=== PATIENT | female | born 1970 | race Caucasian/White ===

== ENCOUNTER → 2017-12-05 07:13 | Outpatient (CLI) | payer BC | END | disposition home or self-care (01) | LOC: D.MRI 12-03 07:00 | DX: M54.5 Low back pain (principal) ==

== ENCOUNTER → 2017-12-26 21:12 | Outpatient (CLI) | payer BC | END | disposition home or self-care (01) | LOC: D.MAMMO 14:30 | DX: Z12.31 Encounter for screening mammogram for malignant neoplasm of breast (principal) ==

== ENCOUNTER → 2018-01-09 08:23 | Outpatient (CLI) | payer BC ==
--- NOTE | ~2018-01-09 | ST ---
PATIENT:SHEREE MITCHELL MEDICAL RECORD: [id number] SEX: F LOCATION:[facility] ORDER #: ADMISSION DATE: 01/09/18 AGE OF PATIENT: 47 REFERRING PHYSICIAN: INTERPRETING PHYSICIAN: DANNIE DE LA CRUZ MD DATE OF SERVICE: 01/09/2018 PROCEDURE: Nuclear stress test. INDICATION: Angina, hypertension, diabetes, and hyperlipidemia. DESCRIPTION: The patient was exercised on standard Lexiscan protocol with 33 mCi of sestamibi injected at peak stress. Rest images were done previously with 11 mCi. FINDINGS: Gated SPECT reveals a preserved ejection fraction at 73% with good wall motioning and thickening and brightening throughout all segments. SPECT imaging: Cardiolite was used as myocardial perfusion agent. There is homogeneous uptake throughout all segments at rest and stress with no evidence of inducible ischemia or previous infarction. OVERALL IMPRESSION: 1. This is a normal nuclear stress test with no evidence of inducible ischemia or previous infarction. 2. Gated SPECT reveals preserved ejection fraction at 73%. In this patient with ongoing symptomatology, the current scan does not suggest the presence of hemodynamically significant coronary artery disease. Evaluate noncardiac etiology of chest pain. TRANSINT:[id number] Voice Confirmation ID: [id number] DOCUMENT ID: [id number] DANNIE DE LA CRUZ MD at 1718 CC: [id number] DICTATION DATE: 01/09/18 1618 DERRICK HELPER: 01/10/18 0845 [facility] CLI 01/09/18 [facility] [address] [place] [address]
== END | disposition home or self-care (01) ==
LOC: D.HCCARDIO 08:23
DX: I20.9 Angina pectoris, unspecified (principal)

== ENCOUNTER → 2018-07-18 15:32 | Outpatient (CLI) | payer BC | END | disposition home or self-care (01) | LOC: D.MRI 15:32 | PROVIDERS: ATTEND Family Medicine | DX: M54.12 Radiculopathy, cervical region (principal); M25.512 Pain in left shoulder ==

== ENCOUNTER 2019-07-18 05:15 | Day surgery (SDC) | payer BC ==
[2019-07-16 10:24] LABS: HEMATOCRIT 44.5 % (36.0-48.0); HEMOGLOBIN 14.5 g/dL (12-16); MCHC 32.6 g/dL (31.0-37.0); MEAN PLATELET VOLUME 9.8 fL (7.4-10.4); RDW 13.2 % (11.5-14.5); WBC 7.8 10x3/uL (4.8-10.8)
[2019-07-16 10:25] LABS: CALC OSMOLALITY 280 mosm/kg (275-300); CALCIUM 9.4 mg/dL (8.5-10.1); CARBON DIOXIDE 28.1 mmol/L (21.0-32.0); CHLORIDE - SERUM 101 mmol/L (98-107); CREATININE - SERUM 0.7 mg/dL (0.6-1.3); GLUCOSE 200 mg/dL (74-106); POTASSIUM - SERUM 4.3 mmol/L (3.5-5.1); SODIUM 137 mmol/L (136-145); UREA NITROGEN 15 mg/dL (7-18); eGFR NON AFRICAN AMERICAN > 90 mL/min (90-120)
[~2019-07-18] VITALS: Ht 165.1 cm; Wt 97.5 kg
[~2019-07-18 05:15] MED LIST: ALTACE1.25 MG PO; CRESTOR40 MG PO; FARXIGA10 MG PO; GLUCOPHAGE1000 MG PO; GLUCOTROL 5 MG T5 MG PO; JARDIANCE10 MG PO; SYNTHROID112 MCG PO; VYVANSE70 MG PO; ZOLOFT100 MG PO; [UNRECOGNIZED DRUG - OTHER] INJ
[2019-07-18 06:06] VITALS: BP 117/71; Ht 165.1 cm; Wt 97.5 kg
--- NOTE | 2019-07-19 09:30 | OP ---
PATIENT NAME: SHEREE ELLIS MEDICAL RECORD: [id number] :68 LOCATION:[facility] ADMISSION DATE: SURGEON: AJIT JAVIER DO DATE OF OPERATION: 07/18/2019 PROCEDURE PERFORMED: Left shoulder arthroscopy with lysis of adhesions, bursectomy and manipulation under anesthesia. PREOPERATIVE DIAGNOSIS: Left shoulder adhesive capsulitis. POSTOPERATIVE DIAGNOSIS: Left shoulder adhesive capsulitis. INDICATIONS: Ms. Ellis is a 48-year-old female who has had left shoulder pain and loss of mobility for quite some time. She has tried all manner of nonoperative treatment including physical therapy and injections to no avail. She wanted something done surgically and was tired of dealing with the loss of motion. I informed her of the risks including recurrence of adhesive capsulitis fracture, continued pain, rotator cuff tear, and a need to continue doing physical therapy. She is aware of all that and other risks of surgery and signed a consent. SURGEON: Ajit Javier DO DESCRIPTION OF PROCEDURE: The patient received a block by anesthesia in the preoperative area and was taken to the operative suite, given 900 mg clindamycin, laid in the right lateral decubitus position with the left shoulder up. She was then sedated and LMA was placed. The left shoulder was then prepped and draped in sterile fashion. A timeout was performed and everyone was agreeance with correct side, site, patient and procedure. We then began by inflating the joint with 60 mL of normal saline through an 18-gauge spinal needle through the posterior portal. I then established portal with an 11-blade scalpel. A trocar was then entered into the joint. Anterior portal was then established an 18-gauge spinal needle and 11-blade scalpel and a burner was brought in through the anterior portal after the trocar was used. There was a significant amount of scar tissue or soft tissue on the rotator interval. This was taken down with the burner as well as just inferior to the subscapularis. There were no rotator cuff seen in the subscapularis, supraspinatus and infraspinatus. The joint appeared to be in good repair and no labral tear. Once the adhesions were taken down and I went to the subacromial space and made a lateral portal with an 18-gauge spinal needle and 11-blade scalpel and then used a shaver to remove the bursa on the rotator cuff, subacromial bursa, clearing that up. Following that, I removed the camera and the shaver and I did the manipulation first and got it to 180 degrees of forward flexion, 120 degrees of abduction and at the arm at the side, 90 degrees of external rotation, and full internal rotation with abduction to 90 and external rotation. It was a significant release done with this. I then closed the portal sides with 4-0 Monocryl in an interrupted fashion and the Dermabond glue was placed on them. She was then dressed with Telfa and Tegaderm. We are going to put in a sling and taken her to recovery in stable condition. BLOOD LOSS: Minimal. COMPLICATIONS: None. TRANSINT:[id number] Voice Confirmation ID: [id number] DOCUMENT ID: [id number] OPERATIVE REPORT [id number] SHEREE ELLIS,AJIT Gomez DO at 0930 CC: [id number] DICTATION DATE: 07/18/19 1443 TIP CUTTER: 07/18/19 2317 [facility] 07/18/19 [id number] [place] [address]
== END 2019-07-18 09:58 | disposition home or self-care (01) ==
LOC: D.OPS 05:15 → D.PAN 07:00 → D.OPS 07:30
PROVIDERS: Anesthesiology; ATTEND Orthopaedic Surgery
DX: M75.02 Adhesive capsulitis of left shoulder (principal); E11.9 Type 2 diabetes mellitus without complications; E07.9 Disorder of thyroid, unspecified; Z79.84 Long term (current) use of oral hypoglycemic drugs